=== PATIENT | male | born 1965 | race Caucasian/White ===

== ENCOUNTER 2021-01-09 12:22 | Day surgery (SDC) | payer OTHER ==
[~2021-01-09] VITALS: Ht 177.8 cm; Wt 84.8 kg
[2021-01-09] MEDS ORDERED: AMIT25TA PO (13:10)
[2021-01-09] MEDS ORDERED: ENAL10TA9 PO (13:10)
[2021-01-09] MEDS ORDERED: ATOR20TA37 PO (13:10)
[2021-01-09] MEDS ORDERED: OMEP40CA8 PO (13:10)
[2021-01-09 13:16] VITALS: BP 137/93
[2021-01-09] MEDS ORDERED: METH-639 PO (13:16)
[2021-01-09] MEDS ORDERED: ASPI81TA45 PO (13:16)
[2021-01-09] MEDS ORDERED: [UNRECOGNIZED DRUG - OTHER] PO (13:16)
[2021-01-09] MEDS ORDERED: ONDANSETRON 2MG/ML, 2ML IVPush PRN (13:30)
[2021-01-09] MEDS ORDERED: FENTANYL PF 100 MCG/2ML IV PRN ×2 (13:30→15:00)
[2021-01-09 13:33] LABS: ALANINE AMINOTRANSFERASE 37 U/L (12-78); ALBUMIN 3.6 g/dL (3.4-5.0); ANION GAP 11 mmol/L (5-15); CALCIUM 9.1 mg/dL (8.5-10.1); CHLORIDE 101 mmol/L (98-107); CREATININE 0.68 mg/dL (0.7-1.3)
[2021-01-09 13:35] LABS: ALKALINE PHOSPHATASE 94 U/L (45-117); BILIRUBIN,TOTAL 0.9 mg/dL (0.2-1.0); TOTAL PROTEIN 7.8 g/dL (6.4-8.2)
[2021-01-09] MEDS ORDERED: ATEN25TA PO (13:36)
[2021-01-09] MEDS ORDERED: CHOL10003 PO (13:36)
[2021-01-09] MEDS ORDERED: CHLORHEXIDINE 15 ML UDC ONE (13:42)
[2021-01-09] MEDS ORDERED: LACTATED RINGERS 1,000 ML IV SCH (14:00)
[2021-01-09] MEDS ORDERED: CHLORHEXIDINE 15 ML UDC PO ONE (14:00)
[2021-01-09] MEDS ORDERED: MIDAZOLAM 1 MG/ML, 2ML ONE (14:06)
[2021-01-09] MEDS ORDERED: ETHYL ALCOHOL 98%, 5 ML ONE (14:15)
[2021-01-09] MEDS ORDERED: BUPIVACAINE/PF 0.25% ONE (14:15)
[2021-01-09] MEDS ORDERED: FENTANYL PF 100 MCG/2ML ONE (14:20)
[2021-01-09] MEDS ORDERED: PROPOFOL 50 ML ONE (14:23)
[2021-01-09] MEDS ORDERED: ACETAMINOPHEN 325 MG TABLET PO PRN (15:00)
[2021-01-09] MEDS: OXYcodone 5 MG/5 ML ORAL.SOL UDC PO PRN ×2 (15:53→16:30)
== END 2021-01-09 17:20 | disposition home or self-care (01) ==
LOC: OUT 12:22
PROVIDERS: ATTEND Internal Medicine Gastroenterology
DX: R93.3 Abnormal findings on diagnostic imaging of other parts of digestive tract (principal); C25.1 Malignant neoplasm of body of pancreas; I85.00 Esophageal varices without bleeding; R18.8 Other ascites; I10 Essential (primary) hypertension; E78.5 Hyperlipidemia, unspecified
CPT/HCPCS: 36415; 43242; 43244; 80053; 82150; 83690; 88172; 88173; 88177; 88307; J2250; J2704; J3010; J7120